=== PATIENT | male | born 1935 | race Caucasian/White ===

== ENCOUNTER 2017-05-29 11:35 | Emergency (ER) | payer MEDICARE, OTHER ==
[2017-05-29 11:43] VITALS: BP 128/67
[2017-05-29] MEDS ORDERED: Sodium Chloride 0.9% 10 ML Syringe FLUSH PRN (11:56)
--- NOTE | 2017-05-29 11:57 | EDM.PDOC ---
ED HPI GENERAL MEDICAL PROBLEM - General Chief Complaint: Abdominal Pain Stated Complaint: [facility] Time Seen by Provider: 05/29/17 11:47 Source of Information: Reports: Patient, [facility] Records History Limitations: Reports: Altered Mental Status - History of Present Illness INITIAL COMMENTS - FREE TEXT/NARRATIVE: Patient is a 81-year-old male presents ED complaining of intermittent pain to the left lower inguinal region. Patient has a large mass present. Patient is a resident of [facility]. He was at physical therapy when staff noticed this large mass to the left lower abdomen/inguinal region. Patient had pain at that time. He presents to the ED with minimal pain. He does have a history of dementia. They're concerned that the patient may have a entrapment of bowel within the inguinal hernia. Again patient has no complaints with admission to the ED. Vital signs are stable. He is afebrile. Patient is a full code. Groin Pain Score (Numeric/FACES): 5 - Related Data Allergies Allergy/AdvReac Type Severity Reaction Status Date / Time No Known Allergies Allergy Verified 02/14/16 13:20 Home Meds: Home Meds Acetaminophen 650 mg PO BID 05/29/17 [History] Furosemide [Lasix] 60 mg PO DAILY 05/29/17 [History] LORazepam [Ativan] 0.5 mg PO Q6H PRN 05/29/17 [History] Sennosides [Senna] 8.6 mg PO DAILY 05/29/17 [History] Sennosides [Senna] 8.6 mg PO DAILY PRN 05/29/17 [History] Sennosides/Docusate Sodium [Senna-Docusate Sodium Tablet] 1 tab PO BID 05/29/17 [History] Sennosides/Docusate Sodium [Senna-Docusate Sodium] 1 tab PO DAILY PRN 05/29/17 [ History] guaiFENesin/Dextromethorphan [Guaiasorb Dm Liquid] 10 ml PO ASDIRECTED PRN 05/29 [History] Past Medical History Genitourinary History: Reports: Other (See Below) Other Genitourinary History: Inguinal hernia Neurological History: Reports: Alzheimers Disease Psychiatric History: Reports: Dementia Social & Family History - Family History Family Medical History: Noncontributory - Tobacco Use Smoking Status *Q: Unknown Ever Smoked - Caffeine Use Caffeine Use: Reports: None - Recreational Drug Use Recreational Drug Use: No ED ROS GENERAL - Review of Systems Review Of Systems: See Below Constitutional: Denies: Fever, Chills, Decreased Appetite Respiratory: Denies: Shortness of Breath Cardiovascular: Denies: Chest Pain GI/Abdominal: Denies: Abdominal Pain, Nausea, Vomiting : Denies: Dysuria ED EXAM, GI/ABD - Physical Exam Exam: See Below Exam Limited By: Altered Mental Status General Appearance: Alert, WD/WN, No Apparent Distress Eyes: Bilateral: Normal Appearance Ears: Hearing Grossly Normal Nose: Normal Inspection Throat/Mouth: Normal Voice, No Airway Compromise Neck: Normal Inspection, Supple Respiratory/Chest: No Respiratory Distress, Lungs Clear, Normal Breath Sounds, No Accessory Muscle Use, Chest Non-Tender Cardiovascular: Normal Peripheral Pulses, Regular Rate, Rhythm, No Murmur GI/Abdominal Exam: Soft, Non-Tender, No Organomegaly, Distended (To the left lower inguinal region, hernia present, firm to touch, with no pain on palpation. ), Abnormal Bowel Sounds (Hypoactive) Extremities: Normal Inspection, Non-Tender, No Pedal Edema, Normal Capillary Refill Neurological: Alert, CN II-XII Intact, Normal Cognition Psychiatric: Normal Affect, Normal Mood Skin Exam: Warm, Dry, Intact, Normal Color Course - Vital Signs Last Recorded V/S: Last Vital Signs Temp 97.7 F 05/29/17 11:39 Pulse 71 05/29/17 11:39 Resp 16 05/29/17 11:39 BP 128/67 05/29/17 11:39 Pulse Ox 96 05/29/17 11:39 - Orders/Labs/Meds Orders: Active Orders 24 hr Category Date Time Status Peripheral IV Care [RC] . DIRECTED Care 05/29/17 11:56 Active Peripheral IV Insertion Adult [OM.PC] Stat Oth 05/29/17 11:56 Ordered Labs: Laboratory Tests 05/29/17 05/29/17 05/29/17 Range/Units 13:05 13:05 13:05 WBC 5.39 (4.23-9.07) K/mm3 RBC 3.89 L (4.63-6.08) M/mm3 Hgb 13.9 (13.7-17.5) gm/L Hct 41.6 (40.1-51.0) % MCV 106.9 H (79.0-92.2) fl MCH 35.7 H (25.7-32.2) pg MCHC 33.4 (32.2-35.5) g/dl RDW Std Deviation 47.2 H (35.1-43.9) fL Plt Count 246 (163-337) K/mm3 MPV 8.8 L (9.4-12.3) fl Neut % (Auto) 52.6 (34.0-67.9) % Lymph % (Auto) 32.3 (21.8-53.1) % [place] % (Auto) 8.9 (5.3-12.2) % Eos % (Auto) 5.8 (0.8-7.0) Baso % (Auto) 0.4 (0.1-1.2) % Neut # (Auto) 2.84 (1.78-5.38) K/mm3 Lymph # (Auto) 1.74 (1.32-3.57) K/mm3 [place] # (Auto) 0.48 (0.30-0.82) K/mm3 Eos # (Auto) 0.31 (0.04-0.54) K/mm3 Baso # (Auto) 0.02 (0.01-0.08) K/mm3 Manual Slide Review Abnormal smear PT 10.6 (8.0-13.0) SECONDS INR 0.97 APTT (22-36) SECONDS Sodium 141 (136-145) mEq/L Potassium 3.8 (3.5-5.1) mEq/L Chloride 104 (98-107) mEq/L Carbon Dioxide 29 (21-32) mEq/L Anion Gap 11.8 (5-15) BUN 30 H (7-18) mg/dL Creatinine 1.5 H (0.7-1.3) mg/dL Est Cr Clr Drug Dosing 42.27 mL/min Estimated GFR (MDRD) 45 (>60) mL/min BUN/Creatinine Ratio 20.0 H (14-18) Glucose 84 (83-115) mg/dL Calcium 9.5 (8.5-10.1) mg/dL Total Bilirubin 0.2 (0.2-1.0) mg/dL AST 22 (15-37) U/L ALT 19 (16-63) U/L Alkaline Phosphatase 80 (46-116) U/L C-Reactive Protein < 0.2 (<1.0) mg/dL Total Protein 6.9 (6.4-8.2) g/dl Albumin 2.8 L (3.4-5.0) g/dl Globulin 4.1 gm/dL Albumin/Globulin Ratio 0.7 L (1-2) 05/29/17 Range/Units 13:05 WBC (4.23-9.07) K/mm3 RBC (4.63-6.08) M/mm3 Hgb (13.7-17.5) gm/L Hct (40.1-51.0) % MCV (79.0-92.2) fl MCH (25.7-32.2) pg MCHC (32.2-35.5) g/dl RDW Std Deviation (35.1-43.9) fL Plt Count (163-337) K/mm3 MPV (9.4-12.3) fl Neut % (Auto) (34.0-67.9) % Lymph % (Auto) (21.8-53.1) % [place] % (Auto) (5.3-12.2) % Eos % (Auto) (0.8-7.0) Baso % (Auto) (0.1-1.2) % Neut # (Auto) (1.78-5.38) K/mm3 Lymph # (Auto) (1.32-3.57) K/mm3 [place] # (Auto) (0.30-0.82) K/mm3 Eos # (Auto) (0.04-0.54) K/mm3 Baso # (Auto) (0.01-0.08) K/mm3 Manual Slide Review PT (8.0-13.0) SECONDS INR APTT 27 (22-36) SECONDS Sodium (136-145) mEq/L Potassium (3.5-5.1) mEq/L Chloride (98-107) mEq/L Carbon Dioxide (21-32) mEq/L Anion Gap (5-15) BUN (7-18) mg/dL Creatinine (0.7-1.3) mg/dL Est Cr Clr Drug Dosing mL/min Estimated GFR (MDRD) (>60) mL/min BUN/Creatinine Ratio (14-18) Glucose (83-115) mg/dL Calcium (8.5-10.1) mg/dL Total Bilirubin (0.2-1.0) mg/dL AST (15-37) U/L ALT (16-63) U/L Alkaline Phosphatase (46-116) U/L C-Reactive Protein (<1.0) mg/dL Total Protein (6.4-8.2) g/dl Albumin (3.4-5.0) g/dl Globulin gm/dL Albumin/Globulin Ratio (1-2) Meds: Medications Discontinued Medications Generic Name Dose Route Start Last Admin Trade Name Freq PRN Reason Stop Dose Admin Diatrizoate Meglum/Diatrizoate Sod 90 ml 05/29/17 13:59 05/29/17 14:03 Gastrografin 37% PO 05/29/17 14:00 90 ml ONETIME ONE Administration Sodium Chloride 10 ml 05/29/17 11:56 Saline Flush FLUSH ASDIRECTED PRN Keep Vein Open - Re-Assessments/Exams Free Text/Narrative Re-Assessment/Exam: IV will be established. Initial labs and studies include CBC, chem 14, CRP, PTT/ INR, PTT, and CT of the abdomen and pelvis with IV and oral contrast. The patient's creatinines elevated will hold off on IV contrast. Labs reviewed. Patient's creatinine is 1.5. He will not receive IV contrast. CT the abdomen and pelvis impression: Normal size appendix. Nonobstructing calculi within both kidneys. Other incidental nonacute findings as described above. He did mention left inguinal hernia seen containing loops of nondilated small bowel. Patient is ready be discharged back to his residence. Vital signs are stable. Had a long discussion with son who is power of nursing staff development coordinator. Currently the patient is a full code. Son states was determined by general surgeon that surgery would not be appropriate due to high increase of patient not surviving. Son will speak with [facility] administration and changing the full code status to DNR/ Comfort measures only status. Discharge instructions as documented. Departure - Departure Time of Disposition: 15:08 Disposition: Home, Self-Care 01 Condition: Good Clinical Impression: Left groin hernia, Recurrent left inguinal hernia - Discharge Information Instructions: Inguinal Hernia, Adult, [id number], Hernia, Adult, Inguinal Hernia, Adult Referrals: Murali Vo MD [Primary Care Provider] - Forms: ED Department Discharge Additional Instructions: As discussed patient has a left inguinal hernia with small bowel present that is not obstructed. Please return to the E.D. if patient develops pain, nausea vomiting, fever, or any additional new or worsening symptoms. Follow-up PCP as needed. - My Orders Last 24 Hours: My Active Orders 05/29/17 11:56 Peripheral IV Care [RC] . DIRECTED Peripheral IV Insertion Adult [OM.PC] Stat - Assessment/Plan Last 24 Hours: My Active Orders 05/29/17 11:56 Peripheral IV Care [RC] . DIRECTED Peripheral IV Insertion Adult [OM.PC] Stat
[2017-05-29] MEDS ORDERED: Diatrizoate Meglumine/Diatrizoate Sodium 37% 120 ML Bottle PO ONE (13:59)
--- NOTE | 2017-05-29 14:22 | CT ---
CT abdomen and pelvis Technique: Multiple axial sections were obtained from above the dome of the diaphragm inferiorly through the pubic symphysis. Intravenous contrast not utilized due to history of food allergy. Oral contrast has been given. Comparison: Previous CT abdomen and pelvis exam of 02/21/16 is available. Findings: Appendix is seen and is normal in size. Small portion of the visualized lung bases shows mild bibasilar atelectasis. Several scattered cysts are seen within the liver which are felt to be stable from previous exam. Spleen size is normal. Adrenal glands show no nodule. Kidneys show several nonobstructing calculi. Cyst noted within the right kidney. Parapelvic cyst believed to be present within the left kidney. Pancreas is within normal limits. Aorta and iliac vessels shows atherosclerotic change without aneurysmal dilatation. Gallbladder shows no calcified gallstones. No retroperitoneal adenopathy or mesenteric abnormalities are seen. No pelvic mass or adenopathy is seen. Left inguinal hernia is seen containing a loop of nondilated small bowel. Incidental prostate calcifications are present. No bowel dilatation is seen. No inflammatory change or free fluid is identified. Moderate sized hiatal hernia is present. Bone window settings were reviewed which shows scattered degenerative change and mild scoliosis throughout the spine. Impression: 1. Normal sized appendix. 2. Nonobstructing calculi within both kidneys. 3. Other incidental and nonacute findings as described above. Diagnostic code #2
== END 2017-05-29 15:25 | disposition home or self-care (01) ==
LOC: JD.ED 11:35 → SUPCPDRO 11:35 → JD.ED 15:25
DX: K40.91 Unilateral inguinal hernia, without obstruction or gangrene, recurrent (principal); G30.9 Alzheimer's disease, unspecified; F02.80 Dementia in other diseases classified elsewhere, unspecified severity, without behavioral disturbance, psychotic disturbance, mood disturbance, and anxiety; Z79.899 Other long term (current) drug therapy
CPT/HCPCS: 36415; 74176; 80053; 85025; 85610; 85730; 86140; 99285; Q9963; 99284